=== PATIENT | female | born 1945 | race Two or more races ===

== ENCOUNTER 2023-12-08 13:35 | Emergency (ER) | payer MEDICARE, MEDICAID, SELFPAY ==
[2023-12-08 13:39] VITALS: BP 165/86; PULSE 86; TEMP 36.8; O2SAT 96; BMI 29.3
--- NOTE | 2023-12-08 13:46 | XR_ITS ---
The [address] [address] Patient Name: BEATRIZ SLAUGHTER MRN: [id number] date: 1945 Sex: F Assigned Patient Location: ER Current Patient Location: ER Accession/Order Number: [id number] Exam Date: 12/08/2023 13:55 Report Date: 12/08/2023 14:08 At the request of: CUONG RUIZ Procedure: XR chest 1V EXAM: XR chest 1V HISTORY: . Cough . COMPARISON: 04/01/2020 TECHNIQUE: Single view of the chest FINDINGS: Heart is normal in size. There is prominence of the bronchovascular markings. Lungs are free of focal infiltrates. No effusions are noted. Grossly no acute bony abnormality is appreciated. XR/XR chest 1V IMPRESSION: Prominence of the bronchovascular markings. Findings could be chronic. Bronchitis is also possibility. Clinical correlation is suggested. Electronically authenticated by: ODIN DIOR Date: 12/08/2023 14:08
--- NOTE | 2023-12-08 13:47 | ED.URI1 ---
HPI - URI/Sore Throat General Chief Complaint: Upper Respiratory Infection Stated Complaint: COUGHING/CONGESTION Time Seen by Provider: 12/08/23 13:35 Source: patient Limitations: no limitations History of Present Illness HPI Narrative: Patient is a 78-year-old female who presents to the emergency department for cough for the last week. She is concerned she has pneumonia. She has had no objective fevers, vomiting or diarrhea. She does not feel short of breath and she denies chest pain. She has had no significant sputum production, she states she coughs up occasional mucus and has occasional nasal drainage. She states she did have back pain with coughing earlier in the week but this back pain has subsided mostly. She has no other focal medical complaints. Related Data Previous Rx's ?Medication ?Instructions ?Recorded albuterol sulfate 90 mcg/actuation 2 inh inhalation Q4H PRN shortness 12/08/23 aerosol inhaler of breath or wheezing #8.5 grams azithromycin 250 mg tablet See Rx Instructions PO .COMPLEX #6 12/08/23 (Zithromax Z-Luis) tabs dexamethasone 4 mg tablet 4 mg PO BID 5 days #10 tabs 12/08/23 Allergies Allergy/AdvReac Type Severity Reaction Status Date / Time No Known Drug Allergies Allergy Verified 12/08/23 13:39 Review of Systems ROS Constitutional Denies: fever or chills Ears, nose, mouth, and throat Denies: throat pain or nasal congestion Cardiovascular Denies: chest pain Respiratory Reports: cough; Denies: shortness of breath Gastrointestinal Denies: nausea or vomiting Musculoskeletal Denies: back pain Integumentary/Breast Denies: rash Neurological Denies: headache Hematologic/Lymphatic Denies: easy bruising or easy bleeding Exam Narrative Exam Narrative: Gen.: Awake, alert, in no distress Head: Normocephalic, atraumatic ENT: Moist mucous membranes, Bilateral TMs are clear, bulging Respiratory: No respiratory distress, lungs clear bilaterally; Patient speaks in full sentences, no wheezing or rhonchi Cardio: Regular rate and rhythm Extremities: Moves extremities equally Psych: Normal mood and affect Neuro: No focal neuro deficit Skin: Warm, dry, intact Constitutional Vital Signs, click to edit/add: Last Vital Signs Temp 98.2 F 12/08/23 13:39 Pulse 75 12/08/23 13:54 Resp 161 H 12/08/23 13:54 BP 165/86 H 12/08/23 13:39 Pulse Ox 95 12/08/23 13:54 O2 Del Method Room Air 12/08/23 13:54 Course Vital Signs Vital signs: Vital Signs Temperature 98.2 F 12/08/23 13:39 Pulse Rate 86 12/08/23 13:39 Respiratory Rate 20 12/08/23 13:39 Blood Pressure 165/86 H 12/08/23 13:39 Pulse Oximetry 96 12/08/23 13:39 Temperature 98.2 F 12/08/23 13:39 Pulse Rate 75 12/08/23 13:54 Respiratory Rate 161 H 12/08/23 13:54 Blood Pressure 165/86 H 12/08/23 13:39 Pulse Oximetry 95 12/08/23 13:54 Oxygen Delivery Method Room Air 12/08/23 13:54 MDM - URI/Sore Throat MDM Narrative Medical decision making narrative: X-ray reviewed by the radiologist, no pneumonia noted, patient will be treated for bronchitis based on the duration of her symptoms. She is placed on an albuterol inhaler, antibiotics and steroids for home. Patient's family member at bedside requested breathing treatment in the ER. Patient with no wheezing in the emergency department. She has no complaints of shortness of breath or chest pain. Follow-up with PCP and return to the ER if symptoms change or worsen SUPERVISED APC VISIT, PHYSICIAN ATTESTATION: Based on the medical record the care appears appropriate. ? Medical Records Attestation: I reviewed the patient's medical records. Imaging Data Chest x-ray: Attestation: I have reviewed the pertinent imaging results. Radiologist's impression: ITS Impressions Chest X-Ray 12/08/23 13:46 IMPRESSION: Prominence of the bronchovascular markings. Findings could be chronic. Bronchitis is also possibility. Clinical correlation is suggested. Electronically authenticated by: ODIN DIOR Date: 12/08/2023 14:08 Discharge Plan Discharge Stand Alone Forms: Portal Instructions Chief Complaint: Upper Respiratory Infection Clinical Impression: Bronchitis Patient Disposition: Home, Self-Care Time of Disposition Decision: 14:12 Condition: Good Prescriptions / Home Meds: New azithromycin [Zithromax Z-Luis] 250 mg tablet See Rx Instructions .ROUTE .COMPLEX Qty: 6 0RF Rx Instructions: For 250 mg dose pack: take 500 mg today (day 1), then 250 mg for 4 days (days 2-5) dexamethasone 4 mg tablet 4 mg PO BID 5 Days Qty: 10 0RF albuterol sulfate 90 mcg/actuation HFA aerosol inhaler 2 inh inhalation Q4H PRN (Reason: shortness of breath or wheezing) Qty: 8.5 0RF Print Language: Maldivian Instructions: Acute Bronchitis (ED) Referrals: Physician,Non-Staff, MD [Primary Care Provider] - 1 week
[2023-12-08 13:50] VITALS: O2SAT 98
[2023-12-08 13:54] VITALS: PULSE 75; O2SAT 95
[2023-12-08] MEDS: ALBUTEROL SULFATE 2.5 MG/3 ML VIAL NEB IH (13:54)
== END 2023-12-08 14:27 | disposition home or self-care (01) ==
PROVIDERS: Emergency Provider Emergency Medicine
DX: J40 Bronchitis, not specified as acute or chronic (principal)
CPT/HCPCS: 71045; 94640; 99283